=== PATIENT | female | born 1945 | race Caucasian/White ===

== ENCOUNTER 2016-08-21 08:08 | Emergency (ER) | payer OTHER ==
[~2016-08-21] VITALS: Ht 165.1 cm; Wt 94.3 kg
[~2016-08-21 08:08] MED LIST: ASPIR 8181 MG PO; ENALAPRIL MALEA20 MG PO; FIORICET 325 MG1 TAB PO; HYCET 7.5 MG-3473 ML PO; HYDRODIURIL 2525 MG PO; INSULIN DEGLUDEC SC; INSULIN GLARGINE SC; KEFLEX500 MG PO; LEVEMIR100 U/ML SC; LEVOTHYROXINE112 MCG PO; MASON NATURAL2000 IU PO; MULTIVITAMIN1 TAB PO; NOVOLOG100 U/ML SC; PROTONIX40 M3 PO; SIMVASTATIN40 MG PO; TOUJEO SOL300 UNIT/1 SC
--- NOTE | 2016-08-21 08:32 | ED GENERAL ADULT ---
See Addendum History of Present Illness General Chief Complaint: Nausea, Vomiting, Diarrhea Stated Complaint: VOMITING SHAKEY/HX OF DIABETIES Source: patient, family Exam Limitations: no limitations Vital Signs & Intake/Output Vital Signs & Intake/Output Vital Signs Date Time Temp Pulse Resp B/P Pulse O2 O2 Flow FiO2 Ox Delivery Rate 08/21 1829 99.1 76 18 133/68 93 Room Air 08/21 1743 98.2 82 18 142/70 95 Room Air 08/21 1319 98.0 82 18 142/67 95 Room Air 08/21 1116 98.0 80 18 148/66 98 Room Air 08/21 0933 100 Room Air 08/21 0814 97.2 108 20 167/130 96 Room Air Allergies Coded Allergies: No Known Allergies (08/21/16) Reconcile Medications Augmentin (Augmentin 500-125 Tablet) 500 MG-125 MG TABLET 1 TAB PO BID PNEUMONIA Insulin Lispro (Humalog Kwikpen U-100) (Unknown Strength) INSULN.PEN (Unknown Dose) SC SEE SLIDING SCALE DIABETES (Reported) Levothyroxine Sodium 112 MCG TABLET 1 TAB PO DAILY AC THYROID (Reported) Multivitamin (Daily Multiple Vitamin) 1 EACH TABLET 1 TAB PO DAILY SUPPLEMENT (Reported) Pantoprazole Sodium (Protonix) 40 MG TABLET. 1 TAB PO DAILY ANTI ULCER Triage Note: PT TO ED C/O CHILLS AND VOMITING SINCE THIS AM. H/O DIABETES. AFEBRILE. DENIES DIARRHEA. DENIES S/S. PT IS S/P GASTRIC SLEEVE SURGERY 6 WEEKS AGO. FINGERSTICK 299 IN TRIAGE. Triage Nurses Notes Reviewed? yes Onset: Abrupt Duration: hour(s): Timing: recent history HPI: 08/21/16 9:13 AM 71-year-old female with a history of gastric sleeve presents to the emergency department with a sudden onset of vomiting. She says she was in her usual state of health until this morning when she had several episodes of vomiting. She said she had shaking, chills, nausea and vomiting. No abdominal pain, no chest pain, no fever, no diarrhea. No shortness of breath. No sick contacts. She has a past medical history of diabetes mellitus and is status post gastric sleeve surgery done by Dr. Slater in March 2016. Past History Travel History Traveled to [place] past 21 day No Medical History Any Pertinent Medical History? 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 No Review of Systems Review of Systems Constitutional: Denies: fever. EENTM: Reports: no symptoms. Respiratory: Denies: short of breath. Cardiovascular: Denies: chest pain. GI: Reports: vomiting. Denies: abdominal pain. Genitourinary: Reports: no symptoms. Musculoskeletal: Reports: no symptoms. Skin: Reports: no symptoms. Neurological/Psychological: Reports: no symptoms. Hematologic/Endocrine: Reports: no symptoms. Immunologic/Allergic: Reports: no symptoms. Physical Exam Physical Exam General Appearance: alert, awake Head: atraumatic, normal appearance Eyes: Bilateral: normal appearance, PERRL, EOMI. Ears, Nose, Throat: normal pharynx, normal ENT inspection Neck: normal inspection, supple Respiratory: normal breath sounds, chest non-tender, no respiratory distress Cardiovascular: regular rate/rhythm Peripheral Pulses: 4+ radial (R), 4+ radial (L) Gastrointestinal: soft, non-tender Extremities: pedal edema Neurologic/Psych: no motor/sensory deficits, awake, alert, oriented x 3 Skin: intact, normal color, warm/dry Core Measures ACS in differential dx? Yes CVA/TIA Diagnosis: No Severe Sepsis Present: No Septic Shock Present: No Progress Differential Diagnoses I considered the following diagnoses in my evaluation of the patient: [Internal hernia, gastritis, common bile duct stone, acute coronary syndrome, electrolyte derangement, diabetic gastroparesis, bowel obstruction] Plan of Care: Orders Procedure Date/time Status TROPONIN LEVEL 08/21 1420 Complete EKG 08/21 1420 Active BLOOD CULTURE 08/21 1208 Active Add-on Test (ER Only) 08/21 1102 Active CULTURE,URINE 08/21 1102 Active URINALYSIS 08/21 1102 Complete Vital Signs 08/21 0939 Active Add-on Test (ER Only) 08/21 0935 Active TROPONIN LEVEL 08/21 0846 Complete LIPASE 08/21 0846 Complete COMPREHENSIVE METABOLIC PANEL 08/21 0846 Complete CBC WITHOUT DIFFERENTIAL 08/21 0846 Complete EKG 08/21 0846 Active Laboratory Tests 08/21/16 1455: Troponin I < 0.01 08/21/16 1208: Urinalysis LIGHT H, Urine Color YEL, Urine Clarity HAZY H, Urine pH 6.0, Ur Specific [place] 1.020, Urine Protein 30 H, Urine Ketones 15 H, Urine Nitrite NEG, Urine Bilirubin NEG, Urine Urobilinogen 0.2, Ur Leukocyte Esterase NEG, Ur Microscopic SEDIMENT EXAMINED, Urine RBC 1-3, Urine WBC RARE, Ur Epithelial Cells MOD H, Urine Hemoglobin TRACE-LYSED, Urine Glucose >=1000 H 08/21/16 0945: Anion Gap 10, Estimated GFR > 60, BUN/Creatinine Ratio 27.8 H, Glucose 311 H, Calcium 9.4, Total Bilirubin 1.2, AST 17, ALT 34, Alkaline Phosphatase 85, Troponin I < 0.01, Total Protein 6.7, Albumin 3.8, Globulin 2.9, Albumin/ Globulin Ratio 1.3, Lipase 85, CBC w Diff MAN DIFF ORDERED, RBC 4.53, MCV 93.6, MCH 31.5 H, RDW 13.8, MPV 8.5, Gran % 85.8 H, Lymphocytes % 2.8 L, Monocytes % 9.6 H, Eosinophils % 0.1, Basophils % 1.7, Absolute Granulocytes 15.7 H, Segmented Neutrophils 76 H, Band Neutrophils 16 H, Absolute Lymphocytes 0.5 L , Lymphocytes 1 L, Monocytes 7, Absolute Monocytes 1.8 H, Absolute Eosinophils 0, Absolute Basophils 0.3, Normocytic RBCs VERIFIED, Normochromic RBCs VERIFIED, PUBS MCHC 33.7 Microbiology 08/21 1415 BLOOD: Blood Culture - RECD 08/21 1405 BLOOD: Blood Culture - RECD 08/21 1208 URINE ROUT: Urine Culture - RECD Initial ED EKG: NSR, ST depression, pvc Prior EKG: changed Departure Departure Disposition: STILL A PATIENT Condition: Stable Clinical Impression Primary Impression: Vomiting Referrals: LACI CARDENAS,NONA Bailey (PCP/Family) Departure Forms: Customer Survey General Discharge Information Prescriptions: Current Visit Scripts Augmentin (Augmentin 500-125 Tablet) 1 TAB PO BID #20 TAB Comments 08/21/16 5 PM The patient has no chest pain. The patient has no abdominal pain. She has no fever. All her symptoms have resolved.. EKG is essentially unchanged. She has 2 negative troponins. She is tolerating by mouth fluids. She did have leukocytosis and blood cultures. She was empirically treated with Augmentin for possible early pneumonia. She did have a consolidation on chest x-ray and had been vomiting. She will follow-up with her doctor this week or return to the emergency department if abdominal pain, vomiting, or fever. I reviewed the EKG with Dr. Hernandez who is in agreement with the plan. I reviewed the plan of care with Dr. Lemus was in agreement with the plan of care Prior to discharge the patient was awake alert oriented 3 and had no complaints , she was ambulating without difficulty Critical Care Note Critical Care Note Critical Care Time: 30-74 min
[2016-08-21] MEDS ORDERED: DAILY MULTIPLE1 EACH PO (09:15)
[2016-08-21] MEDS ORDERED: HUMALOG KW100 UNIT/1 SC (09:15)
[2016-08-21 10:04] LABS: ABSOLUTE BASOPHIL COUNT 0.3 /CUMM (0.0-0.2); ABSOLUTE EOSINOPHIL COUNT 0 /CUMM (0.0-0.7); ABSOLUTE GRANULOCYTE CT 15.7 /CUMM (1.4-6.5); ABSOLUTE LYMPH COUNT 0.5 /CUMM (1.2-3.4); ABSOLUTE MONOCYTE COUNT 1.8 /CUMM (0.10-0.60); BASOPHIL % 1.7 % (0.0-2.0); EOSINOPHIL % 0.1 % (0-5); GRANULOCYTE % 85.8 % (42.2-75.2); HEMATOCRIT 42.4 % (37-47); MEAN CORPUSCULAR HGB 31.5 PG (27.0-31.0); MEAN CORPUSCULAR HGB CONC 33.7 G/DL (33.0-37.0); MEAN CORPUSCULAR VOLUME 93.6 FL (81.0-99.0); MEAN PLATELET VOLUME 8.5 FL (7.4-10.4); PLATELET COUNT 238 /CUMM (130-400); RBC DISTRIBUTION WIDTH 13.8 % (11.5-14.5); RED BLOOD CELL CT 4.53 /CUMM (4.20-5.40); WHITE BLOOD CELL COUNT 18.3 /CUMM (4.8-10.8)
--- NOTE | 2016-08-21 11:55 | RADIOLOGY REPORT ---
EXAMINATION: XR PORTABLE CHEST CLINICAL INFORMATION: Vomiting. Assess for aspiration or pneumonia. COMPARISON: Chest x-ray 03/21/[address] scan of the chest 04/21/2016. TECHNIQUE: Portable AP view of the chest was obtained. FINDINGS: The lung [place] are slightly hyperechoic expanded bilaterally. Increased interstitial markings at the bases are most consistent with atelectasis. There is apparent mild cardiomegaly, which may be due to poor inspiration. There are no pleural effusions or pneumothorax. The central pulmonary vasculature is normal. The hilar regions appear normal. There are no acute osseous findings. IMPRESSION: 1. There are no acute cardiopulmonary findings.
--- NOTE | 2016-08-21 13:20 | CT SCAN REPORT ---
EXAMINATION: CT ABDOMEN AND PELVIS WITH CONTRAST CLINICAL INFORMATION: Status post gastric sleeve. Vomiting. Evaluate for internal hernia. COMPARISON: CT chest dated 04/21/2016 TECHNIQUE: Multidetector volumetric imaging was performed of the abdomen and pelvis before and after the IV administration of 95 mL of Optiray 320 intravenous contrast. Sagittal and coronal reformatted images were obtained on the technologist's workstation. DLP: 1081.21 mGy-cm FINDINGS: LUNG BASES: Interval development of patchy consolidation left lower lobe suspicious for pneumonia. LIVER, GALLBLADDER, AND BILIARY TREE: The liver is normal in size, shape, and attenuation. No focal hepatic lesion or biliary ductal dilatation is present. Status post cholecystectomy. PANCREAS: Unremarkable. SPLEEN: Unremarkable. ADRENAL GLANDS: Prominence of bilateral adrenal glands also seen on the prior CT chest maintaining their normal adreniform shape. Findings raise the possibility of adrenal hyperplasia. KIDNEYS AND URETERS: Tiny low-attenuation cortical lesion outer aspect mid to lower left kidney (coronal image 56) measuring approximately 0.5 cm. It is too small to be accurately characterized. Unremarkable right kidney. BLADDER: Incompletely distended limiting the evaluation of the bladder wall. GASTROINTESTINAL TRACT: Status post sleeve gastrectomy with surgical sutures noted along the greater curvature. No evidence of bowel obstruction. No CT evidence of internal hernia. No acute bowel pathology. Mild diverticulosis of the sigmoid colon. No evidence of acute diverticulitis. ABDOMINAL WALL: Tiny fat-containing umbilical hernia. LYMPH NODES: There is no evidence of lymphadenopathy. Stable prominent probably reactive nodes noted in the periportal region. Larger node measures approximately 0.9 cm in short axis. VASCULAR: Atherosclerotic disease with intimal calcification of the aorta and aortic branches. PELVIC VISCERA: Status post hysterectomy. No suspicious ovarian or adnexal abnormality. OSSEOUS STRUCTURES: Degenerative changes noted in the lower thoracic and the lumbar sacral spine. Facet arthropathy lower lumbar spine. Degenerative changes bilateral SI joints. No acute osseous abnormality. IMPRESSION: 1. Patchy left lower lobe consolidation suspicious for pneumonia. 2. Stable prominence of bilateral adrenal glands raises the possibility of adrenal hyperplasia. Clinical and laboratory correlation recommended. 3. No evidence of internal hernia or bowel obstruction. Status post sleeve gastrectomy.
[2016-08-21] MEDS ORDERED: AUGMENTIN 500-1 EACH PO (16:56)
[2016-08-21 18:29] VITALS: BP 133/68
== END 2016-08-21 15:12 ==
LOC: ERH 08:08
PROVIDERS: Student in an Organized Health Care Education/Training Program
DX: R11.10 Vomiting, unspecified (principal); D72.829 Elevated white blood cell count, unspecified; E11.9 Type 2 diabetes mellitus without complications; Z79.4 Long term (current) use of insulin; I10 Essential (primary) hypertension; Z87.891 Personal history of nicotine dependence
CPT/HCPCS: 74177; 81001; 87040; 87086; 93005; 93010; 96361; 96374; J2405

== ENCOUNTER 2016-09-19 13:48 | Observation (INO) | payer OTHER ==
[~2016-09-19] VITALS: Ht 165.1 cm; Wt 92.5 kg
[~2016-09-19 13:48] MED LIST changes: +AUGMENTIN 500-1 EACH PO; +DAILY MULTIPLE1 EACH PO; +HUMALOG KW100 UNIT/1 SC
--- NOTE | 2016-09-19 13:52 | NUR ---
71 Y/O FEMALE C/O "BEING VERY DIZZY" SINCE THIS AM. STATES SHE TOOK MECLIZINE WITH NO RELIEF. STATES THIS HAS HAPPENED TO HER IN THE PAST AND USUALLY THE MEDICATION HELPS. ALSO REPORTS NAUSEA. DENIES URINARY SYMPTOMS. AFEBRILE. TAKEN TO ROOM FOR EKG AND EVAL
--- NOTE | 2016-09-19 13:58 | ED AMS/SEIZURE/WEAK/DIZZY ---
History of Present Illness General Chief Complaint: Dizziness Stated Complaint: DIZZINESS Source: patient, family, old records Exam Limitations: no limitations Vital Signs & Intake/Output Vital Signs & Intake/Output Vital Signs Date Time Temp Pulse Resp B/P Pulse O2 O2 Flow FiO2 Ox Delivery Rate 09/20 0757 97.9 53 20 158/80 94 Room Air 09/19 2335 97.6 52 20 142/80 95 Room Air 09/19 2134 162/82 09/19 1921 180/70 09/19 1911 97.8 54 20 94 Room Air 09/19 1845 54 18 148/84 95 Room Air 09/19 1714 98.2 52 18 148/76 96 Room Air 09/19 1513 97.0 52 16 146/80 95 Room Air 09/19 1400 Room Air 09/19 1351 96.9 56 18 154/68 97 Room Air ED Intake and Output 09/20 0000 09/19 1200 Intake Total 480 Output Total 1 Balance 479 Intake, Oral 480 Output, Other 1 Patient 204 lb Weight Allergies Coded Allergies: No Known Allergies (08/21/16) Triage Note: 71 Y/O FEMALE C/O "BEING VERY DIZZY" SINCE THIS AM. STATES SHE TOOK MECLIZINE WITH NO RELIEF. STATES THIS HAS HAPPENED TO HER IN THE PAST AND USUALLY THE MEDICATION HELPS. ALSO REPORTS NAUSEA. DENIES URINARY SYMPTOMS. AFEBRILE. TAKEN TO ROOM FOR EKG AND EVAL Triage Nurses Notes Reviewed? yes HPI: Patient is a 71 year old female presents complaining of dizziness. Symptoms onset at 0900 when patient stood up from her computer. Symptoms are a room spinning sensation, moderate at rest, worsen with head movement. Patient took an over the counter anti dizzy medication with no improvement. Patient reports that she has had similar episodes previously that usually are not as severe and do not last as long. Denies head injury, blurred vision, chest pain, palpitations, dyspnea, numbness, weakness. (RACH HERNANDEZ,JANELLE) Reconcile Medications Insulin Lispro (Humalog Kwikpen U-100) (Unknown Strength) INSULN.PEN (Unknown Dose) SC SEE SLIDING SCALE DIABETES (Reported) Levothyroxine Sodium 112 MCG TABLET 1 TAB PO DAILY AC THYROID (Reported) Multivitamin (Daily Multiple Vitamin) 1 EACH TABLET 1 TAB PO DAILY SUPPLEMENT (Reported) (LISA CARDENAS,NIKITA) Past History Travel History Traveled to [place] past 21 day No Medical History Any Pertinent Medical History? 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 No (JANELLE PATEL) Review of Systems Review of Systems Constitutional: Denies: chills, fever. EENTM: Reports: no symptoms. Respiratory: Denies: cough, short of breath. Cardiovascular: Denies: chest pain, syncope. GI: Reports: nausea. Denies: abdominal pain, vomiting. Genitourinary: Reports: no symptoms. Musculoskeletal: Reports: no symptoms. Skin: Reports: no symptoms. Neurological/Psychological: Denies: headache, numbness, unable to move lower ext, unable to move upper ext. Hematologic/Endocrine: Reports: no symptoms. Immunologic/Allergic: Reports: no symptoms. (JANELLE PATEL) Physical Exam Physical Exam General Appearance: well developed/nourished, alert, awake Head: atraumatic, normal appearance Eyes: Bilateral: PERRL, other (horizontal nystagmus). Ears, Nose, Throat: normal pharynx, normal ENT inspection, hearing grossly normal Neck: normal inspection, supple, full range of motion Respiratory: normal breath sounds, no respiratory distress, lungs clear Cardiovascular: mild bradycardia, regular rhythm Gastrointestinal: soft, non-tender Back: normal inspection, normal range of motion Extremities: normal range of motion Neurologic/Psych: awake, alert, oriented x 3, dev manager II-XII nml as tested, normal point to point movements of bilateral upper extremities Skin: intact, normal color, warm/dry Lymphatic: no anterior cervical jesse Core Measures ACS in differential dx? Yes ASA ordered for poss ACS? Yes-ordered CVA/TIA Diagnosis: No Severe Sepsis Present: No Septic Shock Present: No (JANELLE PATEL) Progress Differential Diagnosis: arrythmia, anemia, benign positional vertigo, CVA/stroke , dehydration, electrolyte imbalance, intracranial Hem., intracranial mass/tumor , labrynthitis, pneumonia, seizure disorder, subarachnoid Hem., UTI/pyelo, vertebrobasilar insuff Plan of Care: Orders Procedure Date/time Status Consistent Carbohydrate 3 09/20 B Active Change service to 09/20 0729 Active [id number] DOPPLER 09/20 0700 Active MRI-HEAD W/O VIVIENNE 09/20 07 Active PT Evaluate & Treat 09/20 UNK Active House Staff 09/20 UNK Active Consistent Carbohydrate 1 09/19 D Complete TROPONIN LEVEL 09/19 2100 Complete EKG 09/19 2100 Active Teach/Educate 09/19 193 Active Pain Treatment and Response 09/19 1938 Active Nutritional Intake, Monitor 09/19 1938 Active Isolation 09/19 1938 Active Patient Care Conference 09/19 1938 Active Activity/Ambulation 09/19 1938 Active Add-on Test (ER Only) 09/19 182 Active Pathway - chart 09/19 1820 Active Patient Data 09/19 182 Active Patient Data 09/[address] in observation 09/19 1654 Active Vital Signs 09/19 1654 Active Code Status 09/19 1654 Active Telemetry/Self Storage Manager 09/19 1408 Active FingerStick- Glucose 09/19 1408 Active TROPONIN LEVEL 09/19 1408 Complete MAGNESIUM 09/19 1408 Complete COMPREHENSIVE METABOLIC PANEL 09/19 1408 Complete CBC WITHOUT DIFFERENTIAL 09/19 1408 Complete Intake & Output 09/19 1401 Active EKG 09/19 1353 Active House Staff 09/19 UNK Active VTE Mechanical Prophylaxis 09/19 UNK Active Vital Signs 09/19 UNK Active Telemetry/Self Storage Manager 09/19 UNK Active FingerStick- Glucose 09/19 UNK Active Current Medications Sig/Marian Start time Last Medication Dose Stop Time Status Admin Aspirin 81 MG DAILY 09/20 1000 AC (Aspirin) Insulin Aspart 0 TIDAC 09/20 0800 CAN (NovoLOG) Acetaminophen 650 MG Q6P PRN 09/19 1830 AC (Tylenol) Acetaminophen/ 1 TAB Q6P PRN 09/19 183 AC Hydrocodone Bitart (Vicodin) Oxycodone HCl 10 MG Q6P PRN 09/19 183 AC (Roxicodone) Laboratory Tests 09/19/16 2115: Troponin I < 0.01 09/19/16 1433: Anion Gap 6, Estimated GFR 54 L, BUN/Creatinine Ratio 30.0 H, Glucose 238 H, Calcium 9.9, Magnesium 1.6, Total Bilirubin 1.0, AST 13 L, ALT 32, Alkaline Phosphatase 75, Troponin I < 0.01, Total Protein 6.7, Albumin 3.8, Globulin 2.9, Albumin/Globulin Ratio 1.3, CBC w Diff NO MAN DIFF REQ, RBC 4.36, MCV 93.0, MCH 30.9, RDW 13.9, MPV 7.9, Gran % 72.7, Lymphocytes % 18.4 L, Monocytes % 6.6, Eosinophils % 2.2, Basophils % 0.1, Absolute Granulocytes 6.7 H, Absolute Lymphocytes 1.7, Absolute Monocytes 0.6, Absolute Eosinophils 0.2, Absolute Basophils 0, PUBS MCHC 33.2 09/19/2016 3:13:26 PM: No significant improvement in patient's dizziness. Patient almost fell over when attempted ambulate Discussed with and seen by Dr. Marshall. 1705: Patient continues to not be able to get out of the stretcher. Discussed with Dr. Arreola: give aspirin in case of posterior circulation CVA, notify neuro, will bring in as telemetry observation Discussed with Dr. Tom (RACH HERNANDEZ,JANELLE) Diagnostic Imaging: Viewed by Me: CT Scan. Discussed w/RAD: CT Scan. Radiology Impression: PATIENT: RADHA NDIAYE PRESENT AGE: 71 PATIENT ACCOUNT NO: [id number] : 43 LOCATION: [facility] ORDERING PHYSICIAN: JANELLE HERNANDEZ SERVICE DATE: 09/19/16 EXAM TYPE: CAT - CT HEAD WO IV CONTRAST EXAMINATION: CT HEAD WITHOUT CONTRAST CLINICAL INFORMATION: Dizziness and vertigo. Evaluate for stroke. COMPARISON: CT head 11/11/2014. TECHNIQUE: Contiguous axial imaging was performed from the skull base to vertex without intravenous administration of contrast. DLP: 600.71 mGy-cm FINDINGS: There is no acute intracranial hemorrhage or abnormal extra- axial collection. No intracranial mass effect or midline shift. Lateral and third ventricles are normal. No hydrocephalus. There are scattered nonspecific foci of hypoattenuation throughout the periventricular white matter that most likely represent a chronic manifestation of small vessel ischemia. Umanzor-white matter differentiation is grossly preserved and there is no evidence of acute territorial infarct. The calvarium and skull base are intact. Mastoid air cells and middle ear cavities are well aerated. Visualized paranasal sinuses are well- aerated. IMPRESSION: There are scattered chronic small vessel ischemic changes within the periventricular white matter that appear largely unchanged when compared to the CT scan of the head from 11/11/2014. Grossly no evidence of acute territorial infarct or hemorrhage. DICTATED BY: ABDON LOCO MD DATE /TIME DICTATED:09/19/161441 HEAD STOCK OPERATOR:MAICOL DATE/TIME TRANSCRIBED: 09/19/161441 CONFIDENTIAL, DO NOT COPY WITHOUT APPROPRIATE AUTHORIZATION. < Electronically signed in Other Vendor System> SIGNED BY: ABDON LOCO MD 09/19/161448 Initial ED EKG: sinus rhythm with premature beats present, prolonged QT interval , no acute ST/T-wave changes compared to previous EKG Prior EKG: unchanged Rhythm Strip: sinus bradycardia (rate in the 50's) (JANELLE PATEL) Departure Departure Disposition: STILL A PATIENT Condition: Stable Referrals: NONA AGUERO MD (PCP/Family) Departure Forms: Customer Survey General Discharge Information Observation Note Spoke With: BARBIE ARREOLA MD Place Patient In: Non-ED OBS Care Area Rationale for Observation: My rational for observation is as follows: Telemetry monitoring, neurology consultation, physical therapy consultation, patient unable to safely ambulate despite multiple rounds of medication in the emergency department, is unsafe for discharge. (JANELLE PATEL) Departure Clinical Impression Primary Impression: Vertigo Secondary Impressions: Hyperglycemia, Sinus bradycardia Observation Note Physician Advisor Notified: ROSE MAYA DO PA/LOAN CONSULTANT Co-Sign Statement Statement: ED Attending supervision documentation- [X] I saw and evaluated the patient. I have also reviewed all the pertinent lab results and diagnostic results. I agree with the findings and the plan of care as documented in the PA's/LOAN CONSULTANT's documentation. [X] I have reviewed the ED Record and agree with the PA's/LOAN CONSULTANT's documentation. [] Additions or exceptions (if any) to the PAs/LOAN CONSULTANT's note and plan are summarized below: [] (LISA CARDENAS,NIKITA)
--- NOTE | 2016-09-19 14:00 | NUR ---
DAVID LOYD IN ROOM FOR EVAL. EKG IN PROGRESS
--- NOTE | 2016-09-19 14:12 | NUR ---
PT TO CT VIA STRETCHER
--- NOTE | 2016-09-19 14:35 | NUR ---
BLOOD DRAWN AND SENT TO LAB. SST,LAV,BLUE,SCANT AMOUNT OF PEREZ.
[2016-09-19 14:40] LABS: ABSOLUTE BASOPHIL COUNT 0 /CUMM (0.0-0.2); ABSOLUTE EOSINOPHIL COUNT 0.2 /CUMM (0.0-0.7); ABSOLUTE GRANULOCYTE CT 6.7 /CUMM (1.4-6.5); ABSOLUTE LYMPH COUNT 1.7 /CUMM (1.2-3.4); ABSOLUTE MONOCYTE COUNT 0.6 /CUMM (0.10-0.60); BASOPHIL % 0.1 % (0.0-2.0); EOSINOPHIL % 2.2 % (0-5); GRANULOCYTE % 72.7 % (42.2-75.2); HEMATOCRIT 40.6 % (37-47); MEAN CORPUSCULAR HGB 30.9 PG (27.0-31.0); MEAN CORPUSCULAR HGB CONC 33.2 G/DL (33.0-37.0); MEAN PLATELET VOLUME 7.9 FL (7.4-10.4); PLATELET COUNT 243 /CUMM (130-400); RBC DISTRIBUTION WIDTH 13.9 % (11.5-14.5); RED BLOOD CELL CT 4.36 /CUMM (4.20-5.40); WHITE BLOOD CELL COUNT 9.2 /CUMM (4.8-10.8)
--- NOTE | 2016-09-19 14:40 | NUR ---
IV ESTABLISHED. 10MG IV REGLAN GIVEN FOR NAUSEA. PT STATES NAUSEA AND DIZZINESS HAS INCREASED FROM MOVING TO GO TO AND FROM CT. WILL HOLD ANTIVERT AT THIS TIME UNTIL NAUSEA SUBSIDES
--- NOTE | 2016-09-19 14:49 | CT SCAN REPORT ---
EXAMINATION: CT HEAD WITHOUT CONTRAST CLINICAL INFORMATION: Dizziness and vertigo. Evaluate for stroke. COMPARISON: CT head 11/11/2014. TECHNIQUE: Contiguous axial imaging was performed from the skull base to vertex without intravenous administration of contrast. DLP: 600.71 mGy-cm FINDINGS: There is no acute intracranial hemorrhage or abnormal extra-axial collection. No intracranial mass effect or midline shift. Lateral and third ventricles are normal. No hydrocephalus. There are scattered nonspecific foci of hypoattenuation throughout the periventricular white matter that most likely represent a chronic manifestation of small vessel ischemia. Umanzor-white matter differentiation is grossly preserved and there is no evidence of acute territorial infarct. The calvarium and skull base are intact. Mastoid air cells and middle ear cavities are well aerated. Visualized paranasal sinuses are well-aerated. IMPRESSION: There are scattered chronic small vessel ischemic changes within the periventricular white matter that appear largely unchanged when compared to the CT scan of the head from 11/11/2014. Grossly no evidence of acute territorial infarct or hemorrhage.
--- NOTE | 2016-09-19 14:55 | NUR ---
25MG PO ANTIVERT ADMINISTERED. PT SITTING ON STRETCHER IN NAD. LESS NAUSEA AT THIS TIME
--- NOTE | 2016-09-19 15:40 | NUR ---
5MG PO VALIUM GIVEN FOR CONTINUED DIZZINESS. NS BOLUS INFUSING. FAMILY AT BEDSIDE
--- NOTE | 2016-09-19 16:25 | NUR ---
ATTEMPTED TO AMBULATE PT PER DAVID LOYD, BECAME DIZZY WHEN SITTING ON EDGE OF STRETCHER AND WAS UNABLE TO STAND. PT HELPED BACK ONTO STRETCHER. DRISS ESPITIA.
--- NOTE | 2016-09-19 17:46 | NUR ---
CONSISTENT CARB 1 DIET TRAY ORDERED FROM [facility].
--- NOTE | 2016-09-19 17:59 | History & Physical ---
FELIX CARDENAS,[facility] 09/19/16 0353: General Information and HPI History of Present Illness: 71 year old lady with PMH significant for diabetes, vertigo, obesity, DJD, and thyroid disease s/p thyroidectomy, last admitted in [place] in March 2016 for sleeve gastrectomy, presents after a sudden onset of dizziness this morning. Patient was in her usual stae until this morning when she got up after using the computer which involved a lot of rapid eye and head movements according to the patient. She then suddently felt very dizzy and unsteady on feet with a room spinning sensation. Denies any LOC or fall. Symptoms better with rest and worse with movements. Patient took an OTC medication which usually helps with her vertigo without relief. She isn't sure which medication it is. Patient reports drinking a plenty of water on a daily basis. Denies any f/c, chest pain, dyspnea , palpitations, blurry vision, headache, slurred speech, weakness, abdominal pain, n/v/c/d, No recent sick contact/illness/travel. On , the patient lives at home with her . She is indepdent with her ADLs and ambulates without any aids. She is a former smoker who quit in 1999. Denies EtOH/illicit drug use. PCP - Dr. Artur Camargo - Dr. Loja Surgery - Dr. Hardwick Full code. Allergies/Medications Allergies: Coded Allergies: No Known Allergies (08/21/16) Past History Travel History Traveled to [place] past 21 day No Medical History Neurological: NONE EENT: NONE Cardiovascular: hypertension, hyperlipidemia Respiratory: NONE Gastrointestinal: NONE Hepatic: NONE Renal: NONE Musculoskeletal: NONE Psychiatric: NONE Endocrine: diabetes, hypothyroidism Blood Disorders: NONE Cancer(s): NONE DIGITAL DATA ANALYST/Reproductive: NONE History of MRSA: No History of VRE: No History of CDIFF: No Surgical History Surgical History: TONSILECTOMY GALLBLADDER REMOVAL CATARACT THYROIDECTOMY s/p gastric sleeve surg Past Family/Social History Psychosocial History Where do you live? Home Who Do You Live With? spouse Primary Language: Romansh Smoking Status: Former Smoker ETOH Use: denies use Review of Systems Review of Systems Constitutional: Reports: see HPI. Exam & Diagnostic Data Last 24 Hrs of Vital Signs/I&O Vital Signs Date Time Temp Pulse Resp B/P Pulse O2 O2 Flow FiO2 Ox Delivery Rate 09/19 1714 98.2 52 18 148/76 96 Room Air 09/19 1513 97.0 52 16 146/80 95 Room Air 09/19 1400 Room Air 09/19 1351 96.9 56 18 154/68 97 Room Air Intake & Output 09/19 1600 09/19 0800 09/19 0000 Intake Total Output Total Balance Patient 92.533 kg Weight Physical Exam General Appearance Alert, Oriented X3, Cooperative, No Acute Distress Skin No Rashes, No Breakdown, No Significant Lesion HEENT Atraumatic, PERRLA, EOMI, Mucous Membr. moist/pink, Nystagmus on the left eye Neck Supple, No JVD, +2 Carotid Pulse wo Bruit, No LAD Cardiovascular Regular Rate, Normal S1, Normal S2, No Murmurs Lungs Clear to Auscultation, Normal Air Movement Abdomen Normal Bowel Sounds, Soft, No Tenderness, No Masses Neurological Normal Gait, Normal Speech, Strength at 5/5 X4 Ext, Sensation Intact, Cranial Nerves 3-12 NL, Reflexes 2+ Extremities No Clubbing, No Cyanosis, No Edema, Normal Pulses, No Tenderness/ Swelling Vascular Normal Pulses, Pulses Symmetrical Last 24 Hrs of Labs/Rebel: Laboratory Tests 09/19/16 1433: Anion Gap 6, Estimated GFR 54 L, BUN/Creatinine Ratio 30.0 H, Glucose 238 H, Calcium 9.9, Magnesium 1.6, Total Bilirubin 1.0, AST 13 L, ALT 32, Alkaline Phosphatase 75, Troponin I < 0.01, Total Protein 6.7, Albumin 3.8, Globulin 2.9, Albumin/Globulin Ratio 1.3, CBC w Diff NO MAN DIFF REQ, RBC 4.36, MCV 93.0, MCH 30.9, RDW 13.9, MPV 7.9, Gran % 72.7, Lymphocytes % 18.4 L, Monocytes % 6.6, Eosinophils % 2.2, Basophils % 0.1, Absolute Granulocytes 6.7 H, Absolute Lymphocytes 1.7, Absolute Monocytes 0.6, Absolute Eosinophils 0.2, Absolute Basophils 0, PUBS MCHC 33.2 Assessment/Plan Assessment: 71 [id number] with a PMH significant for diabetes, vertigo, obesity, DJD, and thyroid disease s/p thyroidectomy who presents after a sudden onset of dizziness this morning, most likely 2/2 BPPV, admitted to tele to rule out stroke/TIA. # Dizziness Most likely BPPV but given the history and clinical presentation which according to the patient is worse compared to her previous episodes of vertigo, stroke/TIA must be ruled out. * Admit to telemetery unit * Serial troponin & EKGs to r/o ACS * Consult neurology * Neurochecks every 4 hours * Carotid ultrasound and MRI head tomorrow * PT/OT consult # Diabetes * Novolog SSI with accuchecks * Inform Dr. Loja as a courtesy # Hypothyrodisim * Cont home med Synthroid # Diabetic diet # Mild pain pathway # DVTppx with heparin # Full code. As Ranked By This Provider Problem List: 1. Dizziness 2. Vomiting 3. Vertigo Core Measures/Miscellaneous Acute Coronary Syndrome ACS Diagnosis: No Cerebrovascular Accident CVA/TIA Diagnosis: No Congestive Heart Failure CHF Diagnosis: No Venous Thromboembolism VTE Risk Factors: Age > 40 No [facility] VTE prophylaxis d/t: No contraindications No VTE Pharm Prophylaxis d/t: No contraindications VTE Diagnosis: No VTE Type: NONE VTE Confirmed by (Test): NONE Severe Sepsis Severe Sepsis Present: No Septic Shock Septic Shock Present: No Miscellaneous Documentation Attending Case Discussed With: BARBIE LOZANO MD Primary Care Physician: NONA AGUERO MD Patient sees these Specialists See HPI Level of Patient Care: Telemetry DULCE ZURITA MD 09/19/161814: Resident Review Statement Resident Statement: examined this patient, discussed with rn international Other Findings: This is a 71-year-old lady with a past history significant for hypothyroidism, insulin-dependent diabetes, remote history of BPPV presented to the emergency room with acute onset is dizziness around 9 AM today. Patient states that she was using her computer when she sat up she started to get dizzy and had an unsteady gait. Denies any chest pain, syncope or head strike. States that this is happened to her in the past and she takes [id number] antihistamines and it goes away. Today she tried the same and her symptoms did not alleviate subsequently she came to the emergency room. Her vital signs are stable Physical exam and neurological exam is benign except for horizontal nystagmus noted EKG shows a rate of 73, by mouth 121, QRS 100, QTC 525, sinus rhythm; prolonged QTC CAT scan of the head shows scattered chronic small vessel ischemic changes. Does not show any acute infarct or hemorrhage Assessment- 1. Dizziness, most likely consistent with BPPV 2. Hypothyroidism 3. Diabetes Plan- Telemetry admit Vitals per protocol MRI of the head in the morning without gadolinium Carotid Dopplers Neurology consult She has received 325 aspirin the ER, will continue with 81 mg daily Insulin sliding scale, Accu-Cheks, diabetic diet PT evaluation and treatment, will have PT do Karin maneuver with her Monitor off meclizine for now, her symptoms have moderately was altered with 1 tablet of meclizine and Valium given to her in the ER Pain pathway DVT prophylaxis with subcutaneous heparin Full code BARBIE LOZANO MD 09/19/160: General Information and HPI Allergies/Medications Home Med list Insulin Lispro (Humalog Kwikpen U-100) (Unknown Strength) INSULN.PEN (Unknown Dose) SC SEE SLIDING SCALE DIABETES (Reported) Levothyroxine Sodium 112 MCG TABLET 1 TAB PO DAILY AC THYROID (Reported) Meclizine HCl 25 MG TABLET 25 MG PO BID PRN VERTIGO Multivitamin (Daily Multiple Vitamin) 1 EACH TABLET 1 TAB PO DAILY SUPPLEMENT (Reported) Attending MD Review Statement Attending Statement Attending MD Statement: examined this patient, discuss w/resident/PA/RUNNER ON, agreed w/resident/PA/RUNNER ON, discussed with family, reviewed EMR data (avail), reviewed images, amended to note Attending Assessment/Plan: The patient is a 71 yo female with h/o DM2 on insulin, DJD, and hypothyroidism who presented in the [place] ED with c/o severe vertigo with sudden onset this morning. She has had episodes of mild vertigo in the past that was treated with OTC medication by her PCP. She did describe some nausea w/o emesis with this episode. Denies headache or viral symptoms. She is unable to walk due to difficulty with balance. No other focal weakness, numbness or speech difficulty. Physical Exam: VS: T 96.9, P 56, R 18, BP 154/68, PO 97% HEENT: eyes- PERRLA, EOMI with + nystagmus on lateral gaze bilaterally anastacio- dry mucosa w/o lesions Neck: no bruits or adenopathy Chest: clear Cor: RRR, nl S1, S2 w/o murm Abd: BS+, soft, NT, - HSM Ext: no edema, pulses 2+ Neuro: CN 2-12 intact, motor, sensory, DTRs intact. FTN- difficultly bilaterally. Labs/Tests- as above Impression/Plan: #Severe Vertigo- symptoms most suggested of severe case of benign positional vertigo (nystagmus noted on exam). Has had some mild intermittent symptoms, however none this severe in past. She does have risk factors and would be concerned regarding potential posterior circulation CVA. She is unable to ambulate due to symptoms. Plan: Will bring in as Observation to telemetry floor. Monitor for arrhythmia. q4h neuro checks Neuro consult in morning. Will obtain carotid US and MRI of brain- posterior circulation. PT consult- regarding vestibular exercises. Aspirin 81 mg daily- first dose now (has not taken ASA since last surgery). #DM2- on insulin. Followed by Dr. Verduzco. Plan: Glucoscans and sliding scale insulin. #Hypothyroid- on Levothyroxine. Plan: Continue Levothyroxine.
--- NOTE | 2016-09-19 18:03 | NUR ---
PT ADMITTED TO ROOM 185-2
--- NOTE | 2016-09-19 18:26 | NUR ---
REPORT GIVEN TO DRISS ROQUE
--- NOTE | 2016-09-19 18:50 | NUR ---
FINGERSTICK 293. PHARMACY CALLED TO CHANGE TIME FOR INSULIN SLIDING SCALE FOR TONIGHT START SO PT CAN BE COVERED WITH DINNER DOSE OF INSULIN.
--- NOTE | 2016-09-19 18:55 | NUR ---
PT STATES SHE WOULD USUALLY TAKE 6-8 UNITS OF INSULIN PER HER SLIDING SCALE FOR HER CURRENT BLOOD SUGAR. PER EMAR SLIDING SCALE, PT IS TO RECEIVE 3 UNITS. I ADVISED PT'S TO CALL HOSPITAL WHEN HE GETS HOME SO HE CAN INFORM HOSPITAL STAFF OF PT'S DOSING FOR HER SLIDING SCALE. WILL CONTACT HOUSE STAFF AFTER TRANSPORT TO [facility]
[2016-09-19 19:21] VITALS: BP 180/70
--- NOTE | 2016-09-19 19:23 | NUR ---
DR. TRIVEDI NOTIFIED FOR NEW INSULIN SLIDING SCALE ORDER
--- NOTE | 2016-09-19 19:42 | NUR ---
PT ARIVED TO FLOOR. A/O X3, ON ROOM AIR, LUNGS CLEAR TO AUSC. NO S/S DISTRESS. NSR-SINUS JESSICA IN 50'S. LAST BM 09/19/16. +BS ALL QUADRANTS. SKIN INTACT, BLE TRACE/+1 EDEMA. HEELS RED/BLANCHABLE. OTHERWISE INTACT. DENIES PAIN, REPORTS DIZZINESS. IV INTACT.
--- NOTE | 2016-09-19 19:44 | NUR ---
KLARISSA NDIAYE (): PHONE NUMBER = [phone]
--- NOTE | 2016-09-19 20:24 | NUR ---
OBTAINED PATIENTS HOME INSULIN SLIDING SCALE VIA PHONE FROM PATIENTS SUSIE (COPY HAND WRITTEN BY THIS RN AND PLACED IN PATIENT'S PHYSICAL CHART). INFORMATION WAS RELAYED TO SHINGLE TRIMMER AB. PER SHINGLE TRIMMER, CURRENT INPATIENT SLIDING SCALE IS TO LEFT IS, WHICH IS NOT REFLECTIVE OF PATIENTS HOME SLIDING SCALE.
[2016-09-19 21:34] VITALS: BP 162/82
--- NOTE | 2016-09-19 22:20 | Admission Certification ---
Admission Certification Certification Statement - As attending physician, I certify that at the time of - admission, based on clinical presentation, severity of - symptoms, need for further diagnostic testing and - therapeutic interventions, and risk of adverse outcomes - without in-hospital treatment, in my clinical assessment, - this patient requires an acute hospital stay for a minimum - of two nights or longer. I have also considered psychsocial - factors such as support system, advanced age, financial - issues, cognitive issues, and failed out-patient treatments, - past re-admission history, safety of patient, and lack of - compliance as applicable. Specific rationale supporting this admission is: The patient presents with severe vertigo and is unable to ambulated. May represent benign positional vertigo (severe), however concern regarding potential posterior circulation CVA. Will bring in as OBS to telemetry and check carotid US, MRI, neuro checks. Initiate ASA (has been off for some time). Neuro consult in morning.
[2016-09-19 22:49] VITALS: BP 148/62
[2016-09-19 23:35] VITALS: BP 142/80
--- NOTE | 2016-09-19 23:36 | NUR ---
INFORED BY ESCALATOR CONSTRUCTOR THAT PT HAD A BRADYCARDIC EPISODE WITH HEART RATE LOW 45, UNSUSTAINED. PT SLEEPING AT THE TIME. ALL OTHER VITALS HAVE OTHERWISE BEEN WITHIN NORMAL LIMITS. PT DENIES ANY COMPLAINTS. INFOMRED POEM WRITER AB.
--- NOTE | 2016-09-20 06:21 | PN- Housestaff ---
FELIX CARDENAS,JERAD 09/20/16 0620: Subjective Follow-up For: Vertigo Tele-Events Since Last Visit: NSR with occasional bradycardia with minimum HR at 55 Subjective: Patient seen and examined at bedside. She reports feeling much better than yest but still a little wobbly when she stands up. Denies any chest pain, dyspnea, palpitaitons, abdominal pain, n/v/c/d, hedache, vision changes. No events reported overnight. Review of Systems Constitutional: Reports: see HPI. Objective Last 24 Hrs of Vital Signs/I&O Vital Signs Date Time Temp Pulse Resp B/P Pulse O2 O2 Flow FiO2 Ox Delivery Rate 09/20 0757 97.9 53 20 158/80 94 Room Air 09/19 2335 97.6 52 20 142/80 95 Room Air 09/19 2134 162/82 09/19 1921 180/70 09/19 1911 97.8 54 20 94 Room Air 09/19 1845 54 18 148/84 95 Room Air 09/19 1714 98.2 52 18 148/76 96 Room Air 09/19 1513 97.0 52 16 146/80 95 Room Air 09/19 1400 Room Air 09/19 1351 96.9 56 18 154/68 97 Room Air Intake & Output 09/20 1600 09/20 0800 09/20 0000 Intake Total 480 Output Total 1 Balance 479 Intake, Oral 480 Output, Other 1 Patient 92.533 kg Weight Physical Exam General Appearance: Alert, Oriented X3, Cooperative, No Acute Distress Other Physical Findings: Skin No Rashes, No Breakdown, No Significant Lesion HEENT Atraumatic, PERRLA, EOMI, Mucous Membr. moist/pink, Nystagmus on the left eye Neck Supple, No JVD, +2 Carotid Pulse wo Bruit, No LAD Cardiovascular Regular Rate, Normal S1, Normal S2, No Murmurs Lungs Clear to Auscultation, Normal Air Movement Abdomen Normal Bowel Sounds, Soft, No Tenderness, No Masses Neurological Normal Gait, Normal Speech, Strength at 5/5 X4 Ext, Sensation Intact, Cranial Nerves 3-12 NL, Reflexes 2+ Extremities No Clubbing, No Cyanosis, No Edema, Normal Pulses, No Tenderness/ Swelling Vascular Normal Pulses, Pulses Symmetrical Current Medications: Current Medications Sig/Marian Start time Last Medication Dose Route Stop Time Status Admin Acetaminophen 650 MG Q6P PRN 09/19 1830 AC PO Acetaminophen/ 1 TAB Q6P PRN 09/19 1830 AC Hydrocodone Bitart PO Aspirin 81 MG DAILY 09/20 1000 AC 09/20 PO 0947 Aspirin 0 .STK-MED ONE 09/19 1831 DC PO Aspirin 325 MG ONCE ONE 09/19 1715 DC 09/19 PO 09/19 1716 1843 Diazepam 0 .STK-MED ONE 09/19 1536 DC PO Diazepam 5 MG ONCE ONE 09/19 1515 DC 09/19 PO 09/19 1516 1539 Heparin Sodium 5,000 UNIT Q8 09/19 2200 AC 09/20 (Porcine) SC 0643 Insulin Aspart 0 TIDAC 09/20 0800 CAN SC Insulin Aspart 0 TIDAC 09/19 1930 AC 09/20 SC 0806 Levothyroxine Sodium 0.112 MG DAILY AC 09/20 0700 AC 09/20 PO 0643 Magnesium Chloride 64 MG BID 09/20 1006 AC PO 09/20 2300 Meclizine HCl 25 MG BID PRN 09/20 0945 AC PO Meclizine HCl 0 .STK-MED ONE 09/19 1436 DC PO Meclizine HCl 25 MG ONCE ONE 09/19 1415 DC 09/19 PO 09/19 1416 1451 Metoclopramide HCl 0 .STK-MED ONE 09/19 1436 DC .ROUTE Metoclopramide HCl 10 MG ONCE ONE 09/19 1415 DC 09/19 IV 09/19 1416 1437 Oxycodone HCl 10 MG Q6P PRN 09/19 1830 AC PO Sodium Chloride 1,000 ML BOLUS ONE 09/19 1515 DC 09/19 IV 09/19 1614 1539 Last 24 Hrs of Lab/Rebel Results Last 24 Hrs of Labs/Mics: Laboratory Tests 09/19/165: Troponin I < 0.01 09/19/16 1433: Anion Gap 6, Estimated GFR 54 L, BUN/Creatinine Ratio 30.0 H, Glucose 238 H, Calcium 9.9, Magnesium 1.6, Total Bilirubin 1.0, AST 13 L, ALT 32, Alkaline Phosphatase 75, Troponin I < 0.01, Total Protein 6.7, Albumin 3.8, Globulin 2.9, Albumin/Globulin Ratio 1.3, CBC w Diff NO MAN DIFF REQ, RBC 4.36, MCV 93.0, MCH 30.9, RDW 13.9, MPV 7.9, Gran % 72.7, Lymphocytes % 18.4 L, Monocytes % 6.6, Eosinophils % 2.2, Basophils % 0.1, Absolute Granulocytes 6.7 H, Absolute Lymphocytes 1.7, Absolute Monocytes 0.6, Absolute Eosinophils 0.2, Absolute Basophils 0, PUBS MCHC 33.2 Assessment/Plan Assessment: 71 [id number] with a PMH significant for diabetes, vertigo, obesity, DJD, and thyroid disease s/p thyroidectomy who presents after a sudden onset of dizziness this morning, most likely 2/2 BPPV, admitted to tele to rule out stroke/TIA. # BPPV * Serial troponin & EKGs to r/o ACS - negative * Appreciate neurology recs * Neurochecks every 4 hours * Carotid ultrasound and MRI head - negative * PT/OT consulted, appreciate recs * Start meclizine 25mg PO BID PRN # Diabetes * Novolog SSI with accuchecks * Inform Dr. Loja as a courtesy # Hypothyrodisim * Cont home med Synthroid # Diabetic diet # Mild pain pathway # DVTppx with heparin # Full code. Problem List: 1. Dizziness 2. Wound infection 3. Headache 4. Acute medication-induced akathisia 5. Vomiting 6. Vertigo 7. Vertigo 8. Hyperglycemia 9. Sinus bradycardia Pain Ratin Pain Location: 0 Pain Goal: Remain pain free Pain Plan: Mild pathway Tomorrow's Labs & Rationales: None SHARONAALEXANDRA 09/20/16 1449: Attending MD Review Statement Attending Statement Attending MD Statement: examined this patient, discuss w/resident/PA/ORTHOPEDIC MECHANIC, agreed w/resident/PA/ORTHOPEDIC MECHANIC, discussed with family, reviewed EMR data (avail), discussed with nursing, discussed with case mgmt, reviewed images Attending Assessment/Plan: 71 o/f with not significnat pmh comes with dizziness underwent imaging and lab studies not revealing acute abnormlaity and can be dicshcarged in stable condition. studies not revealing acute abnormlaity and can be dicshcarged in stable condition.
[2016-09-20 07:57] VITALS: BP 158/80
--- NOTE | 2016-09-20 13:06 | Cons- Neurology ---
General Information and HPI Consulting Request Date of Consult: 09/20/16 Requested By: SHARONA CARDENAS,ALEXANDRA History of Present Illness: 71-year-old female admitted with vertigo. Patient will admit to a many year history of intermittent, similar symptomatology in the past. She has noted that when playing bingo and turning her head to the right, this may cause her to feel uncomfortable. There was no associated diplopia, dysarthria, appendicular symptomatology or recent URI. This morning, she is feeling very much better. CT scan of the head showed no acute abnormalities. Allergies/Medications Allergies: Coded Allergies: No Known Allergies (08/21/16) Home Med List: Insulin Lispro (Humalog Kwikpen U-100) (Unknown Strength) INSULN.PEN (Unknown Dose) SC SEE SLIDING SCALE DIABETES (Reported) Levothyroxine Sodium 112 MCG TABLET 1 TAB PO DAILY AC THYROID (Reported) Multivitamin (Daily Multiple Vitamin) 1 EACH TABLET 1 TAB PO DAILY SUPPLEMENT (Reported) Review of Systems Review of Systems: Negative for recent fever, chills, rash, weight loss, head trauma, dysarthria, dysphagia, chest pain, shortness of breath formation, bleeding disturbance or anxiety. Past History Travel History Traveled to [place] past 21 day No Medical History Blood Transfusion Hx: No Neurological: vertigo EENT: cataracts Cardiovascular: hypertension, hyperlipidemia Respiratory: NONE Gastrointestinal: NONE Hepatic: NONE Renal: NONE Musculoskeletal: NONE Psychiatric: NONE Endocrine: diabetes, hypothyroidism Blood Disorders: NONE Cancer(s): NONE [employer] HCM CONSULTANT/Reproductive: NONE Surgical History Surgical History: TONSILECTOMY GALLBLADDER REMOVAL CATARACT THYROIDECTOMY s/p gastric sleeve surg Psychosocial History Where Do You Live? Home Who Do You Live With? spouse Primary Language: Estonian Smoking Status: Former Smoker ETOH Use: denies use Exam & Diagnostic Data Vital Signs and I&O Vital Signs Date Time Temp Pulse Resp B/P Pulse O2 O2 Flow FiO2 Ox Delivery Rate 09/20 0757 97.9 53 20 158/80 94 Room Air 09/19 2335 97.6 52 20 142/80 95 Room Air 09/19 2134 162/82 09/19 1921 180/70 09/19 1911 97.8 54 20 94 Room Air 09/19 1845 54 18 148/84 95 Room Air 09/19 1714 98.2 52 18 148/76 96 Room Air 09/19 1513 97.0 52 16 146/80 95 Room Air 09/19 1400 Room Air 09/19 1351 96.9 56 18 154/68 97 Room Air Intake & Output 09/20 1600 09/20 0800 09/20 0000 Intake Total 480 Output Total 1 Balance 479 Intake, Oral 480 Output, Other 1 Patient 204 lb Weight Pleasant, elderly female in no acute distress. Higher cortical function was intact. Speech was fluent. The head was normocephalic and atraumatic. Pupils were equal and reactive. Extraocular movements were full. There was no nystagmus. Facial strength and sensation was intact. Hearing was normal. Tongue was midline. Motor examination showed no drift of the upper extremities. There was no focal or lateralizing weakness. Fine finger movements and rapid alternating movements performed normally. There was no ataxia on [id number] testing. Gait was not evaluated. Assessment/Plan Assessment: By history, Ketty's presentation is most suggestive of recurrent, benign, paroxysmal positional vertigo. History and examination is without evidence of associated brainstem or cerebellar symptomatology. Recommendations: Vestibular therapy consultation. She should be out of bed and ambulate with assistance. She may use meclizine as this may provide some modicum of symptomatic relief. No further neurodiagnostic studies are anticipated. Please feel free to call with any further questions. Consult Acknowledgment - Thank you for your consult request.
--- NOTE | 2016-09-20 13:14 | MRI REPORT ---
EXAMINATION: MR BRAIN WITHOUT CONTRAST CLINICAL INFORMATION: Dizziness. Assess for stroke. COMPARISON: CT scan of the head 09/19/2016. TECHNIQUE: MRI of the brain without contrast was obtained using routine sequences. FINDINGS: No diffusion abnormalities are identified to suggest an acute or subacute infarct. No mass effect or midline shift is seen. The ventricles are normal in size. There are patchy areas of increased T2 and FLAIR signal in the periventricular and subcortical white matter and murray, most prominently in the left centrum semiovale, consistent with chronic microvascular ischemic changes. These correspond to areas of low attenuation on the CT scan. There is a similar small focus in the left lateral cerebellar hemisphere. In addition there are lacunar infarcts in the left abad radiata. No extra-axial fluid collections are seen. The brainstem and cerebellum are normal. No pathologic magnetic susceptibility artifact is identified on the gradient refocused acquisition. The craniovertebral junction, marrow signal, and midline structures are normal. The major intracranial flow-voids at the level of the pauma of Pace are preserved. The dural venous sinus flow-voids are maintained. The mastoid air cells are well-aerated. There is mild mucoperiosteal thickening in the bilateral ethmoid and left sphenoid sinuses. There is a retention cyst in the left inferior maxillary sinus. The nasal septum is deviated to the right and there is a prominent right-sided bony nasal septal spur. There have been bilateral lens extractions. IMPRESSION: 1. There are no acute bleeds or infarcts. 2. There are changes consistent with chronic microvascular ischemic disease and lacunar infarcts.
--- NOTE | 2016-09-20 13:27 | ULTRASOUND REPORT ---
EXAMINATION: DUPLEX BILATERAL CAROTID ULTRASOUND CLINICAL INFORMATION: Dizziness COMPARISON: None. TECHNIQUE: Duplex bilateral carotid US was performed using real-time ultrasound and Doppler techniques (integrating B-mode 2D vascular images, Doppler spectral analysis and color flow Doppler imaging). These techniques were utilized to interrogate the extracranial carotid and vertebral arteries bilaterally. The degree of stenosis is based off criteria similar to NASCET. FINDINGS: 1. On the right: Plaque is present at the carotid bifurcation but velocity measurements are normal and do not suggest a stenosis of greater than 50% diameter reduction in the right ICA. The right external carotid artery shows no significant stenosis. The vertebral artery is patent demonstrating antegrade flow. 2. On the left: Plaque is present at the carotid bifurcation but velocity measurements are normal and do not suggest a stenosis of greater than 50% diameter reduction in the left ICA. The left external carotid artery shows no significant stenosis. The vertebral artery is patent demonstrating antegrade flow. IMPRESSION: Plaque is present in the internal carotid arteries but velocity measurements are normal and there is no evidence to suggest a hemodynamically significant stenosis of greater than 50% diameter reduction.
--- NOTE | 2016-09-20 14:25 | NUR ---
Physical Therapy. PT offered second treatment for vertigo as needed, pt reported she was feeling much better and could now turn her head without symptoms. Pt education given re: outpatient PT as needed for follow-up.
[2016-09-20] MEDS ORDERED: MECLIZINE HCL25 MG PO (14:32)
--- NOTE | 2016-09-20 14:38 | Patient Discharge Instructions ---
Discharge Instructions General Discharge Information You were seen/treated for: Benign Paroxysmal Positional Vertigo Special Instructions: 1. Please follow up with Dr. Siddiqui (primary care) and Dr. Tom (neurologist) within 1-2 weeks of discharge. 2. Call your doctor or return to ED immediately if you have worsening vertigo not controlled with the medication. Diet Continue normal diet: Yes Activity Full Activity/No Limits: Yes Activity Self Limited: No (as tolerated) Acute Coronary Syndrome Inclusion Criteria At DC or during hospital stay patient has or had the following: ACS DIAGNOSIS No Discharge Core Measures Meds if any: Prescribed or Continued at Discharge Meds if any: NOT Prescribed or Continued at Discharge Congestive Heart Failure Inclusion Criteria At DC or during hospital stay patient has or had the following: CHF DIAGNOSIS No Discharge Core Measures Meds if any: Prescribed or Continued at Discharge Meds if any: NOT Prescribed or Continued at Discharge Cerebrovascular accident Inclusion Criteria At DC or during hospital stay patient has or had the following: CVA/TIA Diagnosis No Discharge Core Measures Meds if any: Prescribed or Continued at Discharge Meds if any: NOT Prescribed or Continued at Discharge Venous thromboembolism Inclusion Criteria VTE Diagnosis No VTE Type NONE VTE Confirmed by (Test) NONE Discharge Core Measures - Per Current guidelines, there needs to be overlap - treatment for the first 5 days of Warfarin therapy. - If discharged on Warfarin prior to 5 days of - overlap therapy, the patient will need to be - assessed for post discharge needs including - *Post discharge parental anticoagulation - *Warfarin and/or parental anticoagulation education - *Follow up date to check INR post discharge At least 5 days overlap therapy as Inpatient No Meds if any: Prescribed or Continued at Discharge Note: Overlap Therapy is Warfarin and Anticoagulant Meds if any: NOT Prescribed or Continued at Discharge
== END 2016-09-20 16:30 ==
LOC: ENRESERVTM → ENRESERVDT → ERH 13:48 → 1NO 16:54 → ERHI 16:54 → ENPENDDIS 16:54 → 1NO 18:55
PROVIDERS: Physician Assistant; ADMIT Internal Medicine
DX: H81.10 Benign paroxysmal vertigo, unspecified ear (principal); R00.1 Bradycardia, unspecified; I10 Essential (primary) hypertension; E78.5 Hyperlipidemia, unspecified; E08.65 Diabetes mellitus due to underlying condition with hyperglycemia; E03.9 Hypothyroidism, unspecified; E66.9 Obesity, unspecified; M19.90 Unspecified osteoarthritis, unspecified site; R42 Dizziness and giddiness
CPT/HCPCS: 6020; 70551; 93005; 93010; 96372; 96374; 97112-GP; 97116-GP; 97161-GP; 97530-GP; G0378; J1644; J2765; J3360; J3490